=== PATIENT | female | born 1975 | race African-American/Black ===

== ENCOUNTER → 2016-06-12 | Outpatient (CLI) | payer OTHER ==
[~2016-06-12] MED LIST: EFFEXOR 75M75 MG/TAB PO; FLEXERIL 1010 MG/TAB PO; INDERAL 20MG20 MG PO; KLONOPIN 0.5MG0.5 MG PO; LAMICTAL 25MG T25 MG PO; MOBIC15 MG PO; NORCO 325 MG-51 TAB PO
== END ==
LOC: COL.RAD 12:45
DX: D25.0 Submucous leiomyoma of uterus (principal); N97.8 Female infertility of other origin

== ENCOUNTER → 2016-07-04 | Outpatient (CLI) | payer OTHER | LOC: COL.RAD 12:56 | DX: Z01.89 Encounter for other specified special examinations (principal) ==

== ENCOUNTER → 2016-10-01 | Outpatient (RCR) | payer OTHER | END | disposition home or self-care (01) | LOC: WSPT | DX: M79.672 Pain in left foot (principal); M79.671 Pain in right foot ==

== ENCOUNTER 2016-10-03 12:55 | Outpatient (RCR) | payer OTHER | END 2016-12-03 15:22 | disposition home or self-care (01) | LOC: WSPT 12:55 | DX: M79.672 Pain in left foot (principal) ==

== ENCOUNTER → 2017-02-06 | Outpatient (CLI) | payer OTHER | LOC: COL.RAD 07:41 | DX: N97.9 Female infertility, unspecified (principal); Z98.890 Other specified postprocedural states | CPT/HCPCS: Q9967 ==